=== PATIENT | male | born 2000 | race Caucasian/White ===

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

== ENCOUNTER 2020-08-11 02:55 | Emergency (ER) | payer OTHER ==
[2020-08-11] MEDS ORDERED: ONDANSETRON 4 MG/2 ML VIAL ONE (04:03)
[2020-08-11] MEDS ORDERED: MORPHINE 4 MG/ML SYR ONE (04:03)
--- NOTE | 2020-08-11 05:34 | ER ---
Nurse's Notes [facility] Name: Dru Kowalski Age: 19 yrs Sex: Male : 2000 Arrival Date: 08/11/2020 Time: 03:00 Bed 18 Private MD: Diagnosis: Acute low back pain Presentation: 08/11 03:08 Chief complaint: Patient states: he is having bad lower back pain which started earlier bb tonight he felt a pop in his lower back and after climbing 3 stairs he felt it pop again and went to his knees he had to have help getting back up and did not have any feeling in his legs for 30 minutes. Coronavirus screen: At this time, the client does not indicate any symptoms associated with coronavirus-19. Ebola Screen: No symptoms or risks identified at this time. Initial Sepsis Screen: Does the patient meet any 2 criteria? No. Patient's initial sepsis screen is negative. Does the patient have a suspected source of infection? No. Patient's initial sepsis screen is negative. Risk Assessment: Do you want to hurt yourself or someone else? Patient reports no desire to harm self or others. Onset of symptoms was August 10, 2020. 03:08 Method Of Arrival: Ambulatory bb 03:08 Acuity: DAVID 3 bb Triage Assessment: 03:20 General: Appears in no apparent distress. Behavior is calm, cooperative. Pain: ak2 Complains of pain in back. Musculoskeletal: Historical: - Allergies: 03:12 No Known Allergies; bb - Home Meds: 03:12 None [Active]; bb - PMHx: 03:12 None; bb - PSHx: 03:12 None; bb - Immunization history:: Adult Immunizations up to date. - Social history:: Smoking status: Reported history of juuling and/or vaping. Patient/guardian denies using alcohol, street drugs. Screenin:19 Abuse screen: Denies threats or abuse. Denies injuries from another. Nutritional ak2 screening: No deficits noted. Tuberculosis screening: No symptoms or risk factors identified. Fall Risk None identified. Vital Signs: 03:08 BP 149 / 85; Pulse 108; Resp 16 S; Temp 98.4(O); Pulse Ox 98% on R/A; Weight 102.06 kg bb (R); Height 5 ft. 11 in. (180.34 cm) (R); Pain 10/10; 05:39 BP 130 / 71; Pulse 67; Resp 16; Pulse Ox 97% on R/A; ak2 03:08 Body Mass Index 31.38 (102.06 kg, 180.34 cm) tristen ED Course: 03:00 Patient arrived in ED. am4 03:12 Triage completed. bb 03:12 Arm band placed on Patient placed in an exam room, on a stretcher, on pulse oximetry. bb Family accompanied patient. 03:19 Chandler Fowler is Primary Nurse. ak2 03:19 No apparent distress. ak2 03:19 Patient has correct armband on for positive identification. ak2 03:19 No provider procedures requiring assistance completed. Patient did not have IV access ak2 during this emergency room visit. 03:25 Jose D Rosenberg MD is Attending Physician. pkl 04:24 CT Lumbar Spine Wo Con In Process Unspecified. EDMS Administered Medications: 03:48 Drug: Zofran (Ondansetron) 4 mg Route: IVP; Site: right antecubital; ak2 03:49 Drug: morphine 4 mg Route: IVP; Site: right antecubital; ak2 Outcome: 05:33 Discharge ordered by . pkl 05:39 Discharged to home ambulatory. ak2 05:39 Condition: good 05:39 Discharge instructions given to patient, family, Prescriptions given X 1. 05:40 Patient left the ED. ak2 Signatures: Dispatcher [employer] EDMS Jose D Rosenberg MD MD pkl Jennifer Verma, RN RN Humera Adhikari 4 Chandler Fowler ak2 Corrections: (The following items were deleted from the chart) 03:21 03:20 Pain: Denies pain. ak2 ak2
--- NOTE | 2020-08-11 05:34 | EDPHYS ---
Physician Documentation [facility] Name: Dru Kowalski Age: 19 yrs Sex: Male : 2000 Arrival Date: 08/11/2020 Time: 03:00 Bed 18 Private MD: ED Physician Jose D Rosenberg HPI: 08/11 03:46 This 19 yrs old Male presents to ER via Ambulatory with complaints of Back pkl Pain. 03:46 The patient presents with pain that is acute. The symptoms are located in the low back. pkl Onset: The symptoms/episode began/occurred just prior to arrival. The pain radiates to the both thighs. Associated signs and symptoms: Pertinent positives: tingling and numbness both thighs. The problem was sustained Symptoms started after climbing 3 stairs and felt a pop in the back . The patient has experienced a previous episode, approximately 2 years ago. Historical: - Allergies: 03:12 No Known Allergies; bb - Home Meds: 03:12 None [Active]; bb - PMHx: 03:12 None; bb - PSHx: 03:12 None; bb - Immunization history:: Adult Immunizations up to date. - Social history:: Smoking status: Reported history of juuling and/or vaping. Patient/guardian denies using alcohol, street drugs. ROS: 03:52 Eyes: Negative for injury, pain, redness, and discharge, ENT: Negative for injury, pkl pain, and discharge, Neck: Negative for injury, pain, and swelling, Cardiovascular: Negative for chest pain, palpitations, and edema, Respiratory: Negative for shortness of breath, cough, wheezing, and pleuritic chest pain, Abdomen/GI: Negative for abdominal pain, nausea, vomiting, diarrhea, and constipation. 03:52 Back: Positive for pain with movement, of the lower back. 03:52 : Negative for urinary symptoms. 03:52 MS/extremity: Negative for acute changes. 03:52 Skin: Negative for rash. 03:52 Neuro: Positive for numbness, tingling, of the both thighs, Negative for altered mental status, loss of consciousness. Exam: 03:52 Head/Face: Normocephalic, atraumatic. Eyes: Pupils equal round and reactive to light, pkl extra-ocular motions intact. Lids and lashes normal. Conjunctiva and sclera are non-icteric and not injected. Cornea within normal limits. Periorbital areas with no swelling, redness, or edema. ENT: Nares patent. No nasal discharge, no septal abnormalities noted. Tympanic membranes are normal and external auditory canals are clear. Oropharynx with no redness, swelling, or masses, exudates, or evidence of obstruction, uvula midline. Mucous membranes moist. Neck: Trachea midline, no thyromegaly or masses palpated, and no cervical lymphadenopathy. Supple, full range of motion without nuchal rigidity, or vertebral point tenderness. No Meningismus. Chest/axilla: Normal chest wall appearance and motion. Nontender with no deformity. No lesions are appreciated. Cardiovascular: Regular rate and rhythm with a normal S1 and S2. No gallops, murmurs, or rubs. Normal PMI, no JVD. No pulse deficits. Respiratory: Lungs have equal breath sounds bilaterally, clear to auscultation and percussion. No rales, rhonchi or wheezes noted. No increased work of breathing, no retractions or nasal flaring. Abdomen/GI: Soft, non-tender, with normal bowel sounds. No distension or tympany. No guarding or rebound. No evidence of tenderness throughout. 03:52 Back: pain, that is moderate, of the lower back, ROM is painful, with all movement, Straight leg raises: pain bilaterally. 03:52 : Exam negative for acute changes. 03:52 Skin: Exam negative for rash. 03:52 Neuro: Orientation: is normal, Mentation: is normal, Cranial nerves: grossly normal, Motor: is normal. Vital Signs: 03:08 BP 149 / 85; Pulse 108; Resp 16 S; Temp 98.4(O); Pulse Ox 98% on R/A; Weight 102.06 kg bb (R); Height 5 ft. 11 in. (180.34 cm) (R); Pain 10/10; 05:39 BP 130 / 71; Pulse 67; Resp 16; Pulse Ox 97% on R/A; ak2 03:08 Body Mass Index 31.38 (102.06 kg, 180.34 cm) bb MDM: 03:25 Patient medically screened. pkl 05:29 Data reviewed: vital signs, nurses notes, radiologic studies, CT scan. ED course: pkl Discussed CT Scan result with patient. Advised to follow up with PCP in 2 to 3 days. May need MRI lumbar spines if symptoms are not better. Patient understood instruction. 08/11 03:40 Order name: CT Lumbar Spine Wo Con pkl 08/11 03:40 Order name: Saline Lock pkl Administered Medications: 03:48 Drug: Zofran (Ondansetron) 4 mg Route: IVP; Site: right antecubital; ak2 03:49 Drug: morphine 4 mg Route: IVP; Site: right antecubital; ak2 Disposition: 08/11/20 05:33 Discharged to Home. Impression: Acute low back pain. - Condition is Stable. - Prescriptions for Diclofenac Sodium 75 mg Oral Tablet Sustained Release - take 1 tablet by ORAL route 2 times per day; 30 tablet. - Medication Reconciliation Form, Thank You Letter, Antibiotic Education, Prescription Opioid Use form. - Follow up: Private Physician; When: 2 - 3 days; Reason: Re-evaluation by your physician. - Problem is new. - Symptoms have improved. Signatures: Dispatcher [employer] EDNM Jose D Rosenberg MD MD pkl Jennifer Verma RN RN Chandler [facility] Corrections: (The following items were deleted from the chart) 05:40 05:33 08/11/2020 05:33 Discharged to Home. Impression: Acute low back pain. Condition ak2 is Stable. Forms are Medication Reconciliation Form, Thank You Letter, Antibiotic Education, Prescription Opioid Use. Follow up: Private Physician; When: 2 - 3 days; Reason: Re-evaluation by your physician. Problem is new. Symptoms have improved. pkl
[2020-08-11 05:46] VITALS: TEMP 98.4
[2020-08-11 05:47] VITALS: BP 130/71; O2SAT 97
--- NOTE | 2020-08-11 17:52 | RAD REPORT ---
EXAM DESCRIPTION: CT - Spine Lumbar Wo Con - 08/11/2020 4:48 am CLINICAL HISTORY: The patient is 19 years old and is Male; Numbness/tingling;Pain TECHNIQUE: Axial computed tomography images of the lumbar spine without intravenous contrast. Sagi ttal and coronal reformatted images were created and reviewed. This CT exam was performed using one or more of the following dose reduction techniques: automated exposure control, adjustment of the mA and/or kV according to patient size, and/or use of iterative reconstruction technique. COMPARISON: No relevant prior studies available. FINDINGS: Vertebrae: Unremarkable. No acute fracture. Discs/spinal canal/neural foramina: No acute findings. No spinal canal stenosis. Soft tissues: Unremarkable. IMPRESSION: No acute fracture or subluxation. No significant spinal canal or neural foraminal narrow ing. Electronically signed by: Dru Parra MD 08/11/2020 4:36 AM CDT Due to temporary technical issues with the PACS/Fluency reporting system, reports are being signed by the in house radiologists without review as a courtesy to insure prompt reporting. The interpreting radiologist is fully responsible for the content of the report.
== END 2020-08-11 05:40 | disposition home or self-care (01) ==
LOC: ER 02:55
DX: M54.5 Low back pain (principal); R20.0 Anesthesia of skin
CPT/HCPCS: 72131; J2405; 96374; 96375; 99284

== ENCOUNTER 2020-11-25 18:27 | Emergency (ER) | payer OTHER, SELFPAY ==
[2020-11-25 19:57] LABS: SARS-COV-2 RT PCR NEGATIVE (NEGATIVE)
--- NOTE | 2020-11-25 21:32 | EDPHYS ---
Physician Documentation [facility] Name: Dru Kowalski Age: 20 yrs Sex: Male : 2000 Arrival Date: 11/25/2020 Time: 18:40 Bed Waiting Private MD: ED Physician Julius Hardin HPI: 11/25 21:28 This 20 yrs old Male presents to ER via Ambulatory with complaints of Cough, rn congestion, diarrhea headache. 21:28 The patient or guardian reports cough, Congestion, headache. Onset: The rn symptoms/episode began/occurred 2 week(s) ago. Severity of symptoms: At their worst the symptoms were mild, in the emergency department the symptoms are unchanged. Modifying factors: The symptoms are alleviated by nothing, the symptoms are aggravated by nothing. Associated signs and symptoms: Pertinent positives: diarrhea, nausea, rhinorrhea, sore throat, Pertinent negatives: chest pain. The patient has not experienced similar symptoms in the past. The patient has not recently seen a physician. Patient reports 2 weeks of cough, congestion, diarrhea, headache, fatigue. States makes missed work and needs to be tested. Denies shortness of breath. No chronic medical illnesses.. Historical: - Allergies: 18:46 No Known Allergies; ll1 - PMHx: 18:46 None; ll1 - PSHx: 18:46 None; ll1 - Immunization history:: Client reports having NOT received the Covid vaccine. Flu vaccine status is unknown. - Social history:: Smoking status: Reported history of juuling and/or vaping. - Family history:: not pertinent. - Hospitalizations: : No recent hospitalization is reported. ROS: 21:28 Constitutional: Negative for fever, chills, and weight loss, Eyes: Negative for injury, rn pain, redness, and discharge, ENT: Positive for congestion Cardiovascular: Negative for chest pain, palpitations, and edema, Respiratory: Positive for cough, negative for shortness of breath Abdomen/GI: Negative for abdominal pain positive for nausea and diarrhea Back: Negative for injury and pain, : Negative for injury, bleeding, discharge, and swelling, MS/Extremity: Negative for injury and deformity, Skin: Negative for injury, rash, and discoloration, Neuro: Positive for generalized weakness and fatigue Exam: 21:28 Constitutional: This is a well developed, well nourished patient who is awake, alert, rn and in no acute distress. Head/Face: Normocephalic, atraumatic. Eyes: Pupils equal round and reactive to light, extra-ocular motions intact. Lids and lashes normal. Conjunctiva and sclera are non-icteric and not injected. Cornea within normal limits. Periorbital areas with no swelling, redness, or edema. ENT: No stridor Neck: Trachea midline, no masses palpated, and no cervical lymphadenopathy. Supple, full range of motion without nuchal rigidity Cardiovascular: Regular rate and rhythm. No pulse deficits. Respiratory: Speaking full sentences, unlabored. no increased work of breathing, no retractions or nasal flaring. Skin: Warm, dry Neuro: Awake and alert, GCS 15 Vital Signs: 18:44 BP 137 / 77; Pulse 70; Resp 16; Temp 97.4; Pulse Ox 97% ; Weight 106.59 kg; Height 5 ll1 ft. 11 in. (180.34 cm); Pain 3/10; 18:44 Body Mass Index 32.78 (106.59 kg, 180.34 cm) 1 MDM: 21:28 Differential Diagnosis: Influenza Upper Respiratory Infection Sinusitis Pharyngitis rn Viral Syndrome Other Covid. Data reviewed: vital signs, nurses notes, lab test result(s), and as a result, I will discharge patient. Data interpreted: Pulse oximetry: on room air is 97 %. Interpretation: normal. Counseling: I had a detailed discussion with the patient and/or guardian regarding: the historical points, exam findings, and any diagnostic results supporting the discharge/admit diagnosis, lab results, the need for outpatient follow up, to return to the emergency department if symptoms worsen or persist or if there are any questions or concerns that arise at home. Special discussion: I discussed with the patient/guardian in detail that at this point there is no indication for admission to the hospital. It is understood, however, that if the symptoms persist or worsen the patient needs to return immediately for re-evaluation. ED course: Flu/Covid/strep negative. 2 weeks of symptoms. Family member states exposed to somebody with a viral illness. Most likely viral syndrome given testing negative here.. 21:31 Patient medically screened. rn 11/25 18:48 Order name: Strep; Complete Time: 21:19 ll1 11/25 19:56 Order name: Throat Culture EDPR 11/25 19:57 Order name: COVID-19/FLU A+B; Complete Time: 21:19 [facility] 11/25 18:48 Order name: Droplet/Contact Precautions [facility] 11/25 18:48 Order name: Labs collected and sent [facility] 11/25 18:48 Order name: O2 Per Protocol ll1 Administered Medications: No medications were administered Disposition Summary: 11/25/20 21:31 Discharge Ordered Location: Home rn Problem: an ongoing problem rn Symptoms: have improved rn Condition: Stable rn Diagnosis - Cough rn - Acute upper respiratory infection, unspecified rn Followup: rn - With: Private Physician - When: As needed - Reason: Recheck today's complaints, Re-evaluation by your physician Discharge Instructions: - Discharge Summary Sheet rn - Viral Respiratory Infection rn - Cough, Adult rn Forms: - Medication Reconciliation Form rn - Thank You Letter rn - Antibiotic turn out worker - Prescription Opioid Use rn Signatures: Dispatcher [employer] EDMS Julius Hardin MD MD rn Lewis, Lynsay, RN RN [facility] Corrections: (The following items were deleted from the chart) 19:15 18:54 Influenza Screen (A \T\ B)+BA.LAB.BRZ ordered. EDMS EDMS 19:15 18:54 Influenza Screen (A ordered. EDPR EDMS
--- NOTE | 2020-11-25 21:32 | ER ---
Nurse's Notes [facility] Name: Dru Kowalski Age: 20 yrs Sex: Male : 2000 Arrival Date: 11/25/2020 Time: 18:40 Bed Waiting Private MD: Diagnosis: Cough;Acute upper respiratory infection, unspecified Presentation: 11/25 18:44 Chief complaint: Patient states: CORTEZ, stuffy nose, fatigue for 1 week. Missed work so he ll1 needs to be checked. Fever 103 at home. + nausea and diarrhea. Coronavirus screen: Vaccine status: Patient reports being unvaccinated. Client denies travel out of the [place] in the last 14 days. congestion, cough unrelated to allergies, fatigue, headache, nausea, sore throat, Client presents with at least one sign or symptom that may indicate coronavirus-19. Standard/surgical mask placed on the client. Ebola Screen: Patient denies travel to an Ebola-affected area in the 21 days before illness onset. Initial Sepsis Screen: Does the patient meet any 2 criteria? No. Patient's initial sepsis screen is negative. Does the patient have a suspected source of infection? Yes: Productive cough/pneumonia. Risk Assessment: Do you want to hurt yourself or someone else? Patient reports no desire to harm self or others. Onset of symptoms was November 19, 2020. 18:44 Method Of Arrival: Ambulatory 1 18:44 Acuity: DAVID 4 ll1 Triage Assessment: 21:29 Headache History: Denies prior headaches. General: Appears in no apparent distress. kg Behavior is calm, cooperative, appropriate for age, quiet. Pain: Pain Also complains of no other associated symptoms. nausea. Pain: Denies pain. 21:29 Pain: Pain began 9 days ago. kg Historical: - Allergies: 18:46 No Known Allergies; ll1 - PMHx: 18:46 None; ll1 - PSHx: 18:46 None; ll1 - Immunization history:: Client reports having NOT received the Covid vaccine. Flu vaccine status is unknown. - Social history:: Smoking status: Reported history of juuling and/or vaping. - Family history:: not pertinent. - Hospitalizations: : No recent hospitalization is reported. Screenin:28 Abuse screen: Denies threats or abuse. Denies injuries from another. Nutritional kg screening: No deficits noted. Tuberculosis screening: No symptoms or risk factors identified. Fall Risk None identified. Assessment: 21:27 General: Appears in no apparent distress. Pain: Denies pain. Neuro: No deficits noted. kg GI: Reports diarrhea, nausea. : No deficits noted. Vital Signs: 18:44 BP 137 / 77; Pulse 70; Resp 16; Temp 97.4; Pulse Ox 97% ; Weight 106.59 kg; Height 5 ll1 ft. 11 in. (180.34 cm); Pain 3/10; 18:44 Body Mass Index 32.78 (106.59 kg, 180.34 cm) ll1 ED Course: 18:40 Patient arrived in ED. am2 18:46 Triage completed. ll1 18:46 Arm band placed on. ll1 21:19 Julius Hardin MD is Attending Physician. rn 21:28 Patient has correct armband on for positive identification. kg 21:28 No provider procedures requiring assistance completed. Patient did not have IV access kg during this emergency room visit. Administered Medications: No medications were administered Outcome: 21:28 Discharged to home ambulatory. kg 21:28 Condition: good 21:28 Discharge instructions given to patient, Instructed on discharge instructions, follow up and referral plans. Demonstrated understanding of instructions, follow-up care. 21:31 Discharge ordered by . rn 21:35 Patient left the ED. kg Signatures: Julius Hardin MD MD rn Moreno, Amanda am2 Liz Gatica RN RN ll1 Maribel Calderon RN RN kg
[2020-11-25 21:52] VITALS: BP 137/77; TEMP 97.4; O2SAT 97
== END 2020-11-25 21:35 | disposition home or self-care (01) ==
LOC: ER 18:27
DX: J06.9 Acute upper respiratory infection, unspecified (principal); Z20.822 Contact with and (suspected) exposure to COVID-19
CPT/HCPCS: 0240U; 87070; 87081; 99281

== ENCOUNTER 2021-02-19 16:57 | Emergency (ER) | payer SELFPAY ==
[2021-02-19 18:16] LABS: Absolute Lymphocytes (CBC) 0.5 K/uL (0.7-4.9); Basophils % 0.3 % (0-1.3); Hematocrit 47.9 % (39.6-49.0); Lymphocytes % 3.6 % (15.3-44.8); MPV 7.4 fL (7.6-11.3); RBC Red Blood Cell Count 5.46 M/uL (4.33-5.43)
[2021-02-19 18:33] LABS: Blood Morphology Comment NOT SEEN (NOT SEEN); Platelet Estimate ADEQ; White Blood Cell Scan OK (OK)
[2021-02-19 18:35] LABS: ALT/SGPT 45 U/L (12-78); AST/SGOT 23 U/L (15-37); Albumin 4.3 g/dL (3.4-5.0); Alkaline Phosphatase 92 U/L (45-117); BUN Blood Urea Nitrogen 16 mg/dL (7-18); Bicarbonate 27 mmol/L (21-32); Bilirubin Direct 0.2 mg/dL (0-0.2); Bilirubin Total 0.9 mg/dL (0.2-1.0); Glucose Level 109 mg/dL (74-106); Lipase 67 U/L (73-393); Potassium 3.7 mmol/L (3.5-5.1); Protein, Total 8.6 g/dL (6.4-8.2); Sodium Level 141 mmol/L (136-145)
[2021-02-19] MEDS ORDERED: ONDANSETRON 4 MG/2 ML VIAL ONE (20:11)
[2021-02-19] MEDS ORDERED: MORPHINE 2 MG/ML SYR ONE (20:11)
[2021-02-19] MEDS ORDERED: NA CHLORIDE 0.9% 1,000 ML ONE (20:11)
[2021-02-19] MEDS ORDERED: PANTOPRAZOLE 40 MG INJ ONE (20:11)
[2021-02-19] MEDS ORDERED: CIPROFLOXACIN 400mg IV 400 MG/200 ML BAG IV ONE (20:24)
--- NOTE | 2021-02-19 20:54 | RAD REPORT ---
EXAM DESCRIPTION: CTAbdomen Pelvis W Contrast - 02/19/2021 8:31 pm CLINICAL HISTORY: ABD PAIN COMPARISON: No comparisons TECHNIQUE: CT of the abdomen and pelvis was performed. All CT scans are performed using dose optimization technique as appropriate and may include automated exposure control or mA/KV adjustment according to patient size. FINDINGS: Lower chest: No acute abnormality. Liver: No acute abnormality or suspicious lesions. Biliary: No biliary ductal dilatation. Stomach: No significant focal abnormality. Duodenum: No significant focal abnormality. Pancreas: No significant abnormality. Spleen: No significant abnormality. Adrenal: No suspicious lesions. Kidney/ureter: No hydronephrosis. No renal calculi. Retroperitoneum: No retroperitoneal adenopathy. Vascular: No aneurysm. Bowel: Mild fluid distended distal small bowel and proximal colon. Peritoneum: No ascites or free air. Bladder: Grossly unremarkable. Reproductive: No adnexal masses. Bones: No acute fracture. Other: n/a IMPRESSION: Fluid in the distal small bowel and proximal colon could represent a gastroenteritis. No bowel obstruction.
[2021-02-19] MEDS ORDERED: METRONIDAZOLE 500mg IVPB 500 MG/100 ML BAG IV ONE (21:11)
--- NOTE | 2021-02-19 21:12 | EDPHYS ---
Physician Documentation [facility] Name: Dru Kowalski Age: 20 yrs Sex: Male : 2000 Arrival Date: 02/19/2021 Time: 17:01 Bed 6 Private MD: ED Physician Semaj Watt HPI: 02/19 20:06 This 20 yrs old Male presents to ER via Ambulatory with complaints of marbin Weakness, Vomiting. 20:06 The patient presents with abdominal pain in the lower abdomen. Onset: The marbin symptoms/episode began/occurred this morning. The symptoms do not radiate. Associated signs and symptoms: Pertinent positives: nausea and vomiting, diarrhea, vomiting blood. The symptoms are described as crampy. Modifying factors: The symptoms are alleviated by nothing, the symptoms are aggravated by vomiting. Severity of pain: At its worst the pain was mild in the emergency department the pain is unchanged. Historical: - Allergies: 17:55 No Known Allergies; jl7 - Home Meds: 17:55 None [Active]; jl7 - PMHx: 17:55 None; jl7 - PSHx: 17:55 None; jl7 - Immunization history:: Adult Immunizations not up to date, Client reports having NOT received the Covid vaccine. - Social history:: Smoking status: Reported history of juuling and/or vaping. - Family history:: not pertinent. ROS: 20:06 Constitutional: Negative for fever, chills, and weight loss, Eyes: Negative for injury, marbin pain, redness, and discharge, ENT: Negative for injury, pain, and discharge, Neck: Negative for injury, pain, and swelling, Cardiovascular: Negative for chest pain, palpitations, and edema, Respiratory: Negative for shortness of breath, cough, wheezing, and pleuritic chest pain, Back: Negative for injury and pain, : Negative for injury, bleeding, discharge, and swelling, MS/Extremity: Negative for injury and deformity, Skin: Negative for injury, rash, and discoloration, Neuro: Negative for headache, weakness, numbness, tingling, and seizure, Psych: Negative for depression, anxiety, suicide ideation, homicidal ideation, and hallucinations, Allergy/Immunology: Negative for hives, rash, and allergies, Endocrine: Negative for neck swelling, polydipsia, polyuria, polyphagia, and marked weight changes, Hematologic/Lymphatic: Negative for swollen nodes, abnormal bleeding, and unusual bruising. 20:06 Abdomen/GI: Positive for abdominal pain, nausea and vomiting, diarrhea. Exam: 20:06 Constitutional: This is a well developed, well nourished patient who is awake, alert, marbin and in no acute distress. Head/Face: Normocephalic, atraumatic. Eyes: Pupils equal round and reactive to light, extra-ocular motions intact. Lids and lashes normal. Conjunctiva and sclera are non-icteric and not injected. Cornea within normal limits. Periorbital areas with no swelling, redness, or edema. ENT: Nares patent. No nasal discharge, no septal abnormalities noted. Tympanic membranes are normal and external auditory canals are clear. Oropharynx with no redness, swelling, or masses, exudates, or evidence of obstruction, uvula midline. Mucous membranes moist. Neck: Trachea midline, no thyromegaly or masses palpated, and no cervical lymphadenopathy. Supple, full range of motion without nuchal rigidity, or vertebral point tenderness. No Meningismus. Chest/axilla: Normal chest wall appearance and motion. Nontender with no deformity. No lesions are appreciated. Cardiovascular: Regular rate and rhythm with a normal S1 and S2. No gallops, murmurs, or rubs. Normal PMI, no JVD. No pulse deficits. Respiratory: Lungs have equal breath sounds bilaterally, clear to auscultation and percussion. No rales, rhonchi or wheezes noted. No increased work of breathing, no retractions or nasal flaring. Back: No spinal tenderness. No costovertebral tenderness. Full range of motion. Male : Normal genitalia with no discharge or lesions. Skin: Warm, dry with normal turgor. Normal color with no rashes, no lesions, and no evidence of cellulitis. MS/ Extremity: Pulses equal, no cyanosis. Neurovascular intact. Full, normal range of motion. Neuro: Awake and alert, GCS 15, oriented to person, place, time, and situation. Cranial nerves II-XII grossly intact. Motor strength 5/5 in all extremities. Sensory grossly intact. Cerebellar exam normal. Normal gait. Psych: Awake, alert, with orientation to person, place and time. Behavior, mood, and affect are within normal limits. 20:06 Abdomen/GI: Inspection: abdomen appears normal, Bowel sounds: normal, Palpation: mild abdominal tenderness, in the right lower quadrant and left lower quadrant, Liver: no appreciated palpable abnormalities, Hernia: not appreciated. Vital Signs: 17:53 BP 131 / 86; Pulse 109; Resp 19; Temp 99.1; Pulse Ox 98% on R/A; Weight 104.33 kg; jl7 Height 5 ft. 11 in. (180.34 cm); Pain 8/10; 20:27 BP 121 / 77; Pulse 99; Resp 18; Pulse Ox 100% on R/A; Pain 8/10; df1 21:59 BP 125 / 70; Pulse 78; Resp 18; Pulse Ox 100% on R/A; df1 22:58 BP 116 / 71; Pulse 78; Resp 20; Temp 98.7(O); Pulse Ox 99% on R/A; Pain 2/10; df1 17:53 Body Mass Index 32.08 (104.33 kg, 180.34 cm) 7 MDM: 19:45 Patient medically screened. marbin 20:09 Differential diagnosis: cholecystitis, Cholelithiasis, diverticulitis, gastritis, GI marbin Bleed, non-specific abd pain, pancreatitis, Peptic Ulcer Disease, Pyelonephritis, urinary tract infection. Data reviewed: vital signs, nurses notes, lab test result(s), EKG, radiologic studies. Data interpreted: personnel monitor: rate is 109 beats/min, rhythm is regular, Pulse oximetry: on room air is 98 %. Test interpretation: by ED physician or midlevel provider:. Counseling: I had a detailed discussion with the patient and/or guardian regarding: the historical points, exam findings, and any diagnostic results supporting the discharge/admit diagnosis, lab results, radiology results, the need for outpatient follow up, for definitive care, a family practitioner, a leather goods assembler. 02/19 17:56 Order name: Basic Metabolic Panel [facility] 02/19 17:56 Order name: CBC with Diff; Complete Time: 19:47 [facility] 02/19 17:56 Order name: Hepatic Function; Complete Time: 19:47 [facility] 02/19 17:56 Order name: Lipase; Complete Time: 19:47 [facility] 02/19 17:57 Order name: Basic Metabolic Panel; Complete Time: 19:47 [facility] 02/19 18:33 Order name: CBC Smear Scan; Complete Time: 19:47 EDMS 02/19 17:56 Order name: IV Saline Lock; Complete Time: 20:01 jl7 02/19 20:06 Order name: CT Abd/Pelvis - IV Contrast Only; Complete Time: 21:11 marbin 02/19 17:56 Order name: Labs collected and sent; Complete Time: 20:01 jl7 Administered Medications: 20:22 Drug: ProTONIX (pantoprazole) 80 mg Route: IVP; Site: left antecubital; df1 21:01 Follow up: Response: Marked relief of symptoms df1 20:22 Drug: NS 0.9% 1000 ml Route: IV; Rate: 1 bolus; Site: left antecubital; df1 21:01 Follow up: IV Status: Completed infusion; IV Intake: 1000ml df1 20:22 Drug: Zofran (Ondansetron) 4 mg Route: IVP; Site: left antecubital; df1 21:01 Follow up: Response: Nausea is decreased df1 20:22 Drug: morphine 2 mg Route: IVP; Site: left antecubital; df1 21:01 Follow up: Response: Pain is decreased df1 20:55 Drug: Cipro (ciprofloxacin) 400 mg Volume: 200 ml; Route: IVPB; Infused Over: 60 mins; df1 Site: left antecubital; 21:57 Follow up: IV Status: Completed infusion; IV Intake: 200ml df1 21:58 Drug: Flagyl (metroNIDAZOLE) 500 mg Volume: 100 ml; Route: IVPB; Rate: 200 ml/hr; df1 Infused Over: 30 mins; Site: left antecubital; Disposition Summary: 02/19/21 22:58 Discharge Ordered Location: Home(02/19/21 22:58) marbin Problem: new(02/19/21 22:58) marbin Symptoms: have improved(02/19/21 22:58) marbin Condition: Stable(02/19/21 22:58) marbin Diagnosis - Abdominal tenderness(02/19/21 22:58) marbin - GI Bleed/ Gastrointestinal hemorrhage, unspecified(02/19/21 22:58) marbin - Elevated white blood cell count(02/19/21 22:58) marbin - Vomiting marbin - Diarrhea, unspecified marbin Followup: marbin - With: Private Physician - When: 2 - 3 days - Reason: Recheck today's complaints, Continuance of care, Re-evaluation by your physician Followup: [facility] - With: - When: 2 - 3 days - Reason: Recheck today's complaints, Re-evaluation by your physician Discharge Instructions: - Discharge Summary Sheet marbin - Abdominal Pain, Adult marbin - Gastrointestinal Bleeding marbin - Hematemesis marbin - Abdominal Pain, Adult, [id number] [facility] Forms: - Medication Reconciliation Form marbin - Thank You Letter marbin - Antibiotic Education marbin - Prescription Opioid Use [facility] Prescriptions: - Protonix 40 mg Oral Tablet - take 1 tablet by ORAL route once daily; 30 tablet; Refills: 0, Product marbin Selection Permitted - Zofran 4 mg Oral Tablet - take 1 tablet by ORAL route every 12 hours As needed; 20 tablet; Refills: 0, [facility] Product Selection Permitted - dicyclomine 20 mg Oral Tablet - take 1 tablet by ORAL route 4 times per day; 28 tablet; Refills: 0, Product marbin Selection Permitted Signatures: Dispatcher [employer] Semaj Dietz MD MD cha Leal, Jahala, RN RN jl7 Kelin Leon df1 Corrections: (The following items were deleted from the chart) 22:10 21:12 Home [facility] 22:10 21:12 new [facility] 22:10 21:12 have improved [facility] 22:10 21:12 Stable [facility] 22:10 21:12 Abdominal tenderness [facility] 22:10 21:12 GI Bleed/ Gastrointestinal hemorrhage, unspecified [facility] 22:10 21:12 Elevated white blood cell count [facility] 22:10 21:12 Noninfective gastroenteritis and colitis, unspecified [facility]
--- NOTE | 2021-02-19 21:12 | ER ---
Nurse's Notes [facility] Name: Dru Kowalski Age: 20 yrs Sex: Male : 2000 Arrival Date: 02/19/2021 Time: 17:01 Bed 6 Private MD: Diagnosis: Abdominal tenderness;GI Bleed/ Gastrointestinal hemorrhage, unspecified;Elevated white blood cell count;Vomiting;Diarrhea, unspecified Presentation: 02/19 17:53 Chief complaint: Patient states: Diarrhea x 1 week, vomiting with traces of blood since jl7 yesterday. Coronavirus screen: Vaccine status: Patient reports being unvaccinated. diarrhea, nausea, vomiting. Client presents with at least one sign or symptom that may indicate coronavirus-19. Standard/surgical mask placed on the client. Provider contacted for isolation considerations. Ebola Screen: No symptoms or risks identified at this time. Initial Sepsis Screen: Does the patient meet any 2 criteria? No. Patient's initial sepsis screen is negative. Does the patient have a suspected source of infection? No. Patient's initial sepsis screen is negative. Risk Assessment: Do you want to hurt yourself or someone else? Patient reports no desire to harm self or others. Onset of symptoms was February 18, 2021. 17:53 Method Of Arrival: Ambulatory [facility] 17:53 Acuity: DAVID 3 jl7 Triage Assessment: 17:55 General: Appears in no apparent distress. uncomfortable, Behavior is calm, cooperative, jl7 appropriate for age. Pain: Complains of pain in abdomen Pain currently is 8 out of 10 on a pain scale. Neuro: Level of Consciousness is awake, alert, obeys commands, Oriented to person, place, time, situation. Cardiovascular: Patient's skin is warm and dry. Respiratory: Airway is patent Respiratory effort is even, unlabored, Respiratory pattern is regular, symmetrical. GI: Reports diarrhea, nausea, vomiting. Derm: Skin is pink, warm \T\ dry. Historical: - Allergies: 17:55 No Known Allergies; jl7 - Home Meds: 17:55 None [Active]; jl7 - PMHx: 17:55 None; jl7 - PSHx: 17:55 None; jl7 - Immunization history:: Adult Immunizations not up to date, Client reports having NOT received the Covid vaccine. - Social history:: Smoking status: Reported history of juuling and/or vaping. - Family history:: not pertinent. Screenin:57 Abuse screen: Denies threats or abuse. Nutritional screening: No deficits noted. df1 Tuberculosis screening: No symptoms or risk factors identified. Fall Risk None identified. Assessment: 22:00 General: Appears in no apparent distress. uncomfortable, Behavior is calm, cooperative. df1 Pain: Complains of pain in abdomen Pain radiates to lumbar area, low back area and right low back. Neuro: No deficits noted. Cardiovascular: No deficits noted. Respiratory: No deficits noted. GI: Abdomen is flat, Last BM was February 19, 2021. Bowel sounds present X 4 quads. Abd is soft and non tender X 4 quads. : No deficits noted. EENT: No deficits noted. Derm: No deficits noted. Musculoskeletal: No deficits noted. Vital Signs: 17:53 BP 131 / 86; Pulse 109; Resp 19; Temp 99.1; Pulse Ox 98% on R/A; Weight 104.33 kg; jl7 Height 5 ft. 11 in. (180.34 cm); Pain 8/10; 20:27 BP 121 / 77; Pulse 99; Resp 18; Pulse Ox 100% on R/A; Pain 8/10; df1 21:59 BP 125 / 70; Pulse 78; Resp 18; Pulse Ox 100% on R/A; df1 22:58 BP 116 / 71; Pulse 78; Resp 20; Temp 98.7(O); Pulse Ox 99% on R/A; Pain 2/10; df1 17:53 Body Mass Index 32.08 (104.33 kg, 180.34 cm) 7 ED Course: 17:01 Patient arrived in ED. as 17:55 Triage completed. jl7 17:55 Arm band placed on right wrist. Patient placed in waiting room, Patient notified of 7 wait time. 18:35 Initial lab(s) drawn, by me, sent to lab. Inserted saline lock: 14 gauge 16 gauge 22 kj1 gauge in left antecubital area, using aseptic technique. Blood collected. 19:16 Kelin Leon is Primary Nurse. df1 19:45 Semaj Watt MD is Attending Physician. [facility] 19:56 No provider procedures requiring assistance completed. df1 19:57 Patient has correct armband on for positive identification. Pulse ox on. NIBP on. Door df1 closed. Lights dimmed. 20:01 Basic Metabolic Panel Sent. df1 20:31 CT Abd/Pelvis - IV Contrast Only In Process Unspecified. EDMS 21:11 Lida Head MD is Referral Physician. [facility] 22:58 Lida Head MD is Referral Physician. marbin 22:59 IV discontinued, intact, bleeding controlled, No redness/swelling at site. Pressure df1 dressing applied. Administered Medications: 20:22 Drug: ProTONIX (pantoprazole) 80 mg Route: IVP; Site: left antecubital; df1 21:01 Follow up: Response: Marked relief of symptoms df1 20:22 Drug: NS 0.9% 1000 ml Route: IV; Rate: 1 bolus; Site: left antecubital; df1 21:01 Follow up: IV Status: Completed infusion; IV Intake: 1000ml df1 20:22 Drug: Zofran (Ondansetron) 4 mg Route: IVP; Site: left antecubital; df1 21:01 Follow up: Response: Nausea is decreased df1 20:22 Drug: morphine 2 mg Route: IVP; Site: left antecubital; df1 21:01 Follow up: Response: Pain is decreased df1 20:55 Drug: Cipro (ciprofloxacin) 400 mg Volume: 200 ml; Route: IVPB; Infused Over: 60 mins; df1 Site: left antecubital; 21:57 Follow up: IV Status: Completed infusion; IV Intake: 200ml df1 21:58 Drug: Flagyl (metroNIDAZOLE) 500 mg Volume: 100 ml; Route: IVPB; Rate: 200 ml/hr; df1 Infused Over: 30 mins; Site: left antecubital; Intake: 21:01 IV: 1000ml; Total: 1000ml. df1 21:57 IV: 200ml; Total: 1200ml. df1 Outcome: 21:12 Discharge ordered by . [facility] 22:58 Discharge ordered by . [facility] 22:59 Discharged to home ambulatory. df1 22:59 Condition: stable 22:59 Discharge instructions given to patient, Instructed on discharge instructions, follow up and referral plans. Demonstrated understanding of instructions, follow-up care, medications, Prescriptions given X 4. 22:59 Patient left the ED. df1 Signatures: Dispatcher [employer] EDPR Shukri, Semaj, Stormy Vigil MD, cha, Jahala, AMANDA RN jl7 Carolin Man1 Kelin Leon df1
[2021-02-19 23:11] VITALS: BP 116/71; TEMP 98.7; O2SAT 99
== END 2021-02-19 22:59 | disposition home or self-care (01) ==
LOC: ER 16:57
DX: K92.2 Gastrointestinal hemorrhage, unspecified (principal); D72.829 Elevated white blood cell count, unspecified; R11.10 Vomiting, unspecified; R19.7 Diarrhea, unspecified; R10.819 Abdominal tenderness, unspecified site
CPT/HCPCS: 36415; 74177; 80048; 80076; 83690; 85025; 96361; 96365; 96375; 99284; C9113; J0744; J2270; J2405; J7030; Q9967